=== PATIENT | female | born 1950 ===

== ENCOUNTER 2020-09-18 07:03 | Day surgery (SDC) | payer MEDICARE, OTHER ==
[~2020-09-18 07:03] MED LIST: Lactated Ringers 1,000 ML IV SCH; Lidocaine 2% 5 ML SDV ONE; Midazolam 1 MG/ML 2 ML SDV ONE; Propofol 200 MG/20 ML SDV ONE
--- NOTE | 2020-09-18 08:06 | PCM.PREANE ---
Preanesthetic Assessment - Anesthesia/Transfusion/Family Hx Anesthesia History: Prior Anesthesia Without Reaction Other Type of Anesthesia Reaction Comment: Denies any known problem with anesthesia in the past Family History of Anesthesia Reaction: No Transfusion History: No Prior Transfusion(s) - Review of Systems General: No Symptoms Pulmonary: No Symptoms Cardiovascular: No Symptoms Gastrointestinal: No Symptoms Neurological: No Symptoms Other: Reports: None - Physical Assessment NPO Status Date: 09/17/20 Vital Signs: Last Vital Signs Temp 97.2 F 09/18/20 07:28 Pulse 81 09/18/20 07:28 Resp 16 09/18/20 07:28 BP 149/74 H 09/18/20 07:28 Pulse Ox 97 09/18/20 07:28 Height: 5 ft Weight: 98.43 kg ASA Class: 3 Mental Status: Alert & Oriented x3 Airway Class: Mallampati = 2 ROM/Head Extension: Full Lungs: Clear to Auscultation, Normal Respiratory Effort Cardiovascular: Regular Rate, Regular Rhythm - Lab Values: Laboratory Last Values POC Glucose 178 mg/dL (60-110) H 09/18/20 07:24 - Allergies Allergies/Adverse Reactions: Allergies Allergy/AdvReac Type Severity Reaction Status Date / Time codeine Allergy Stomach Verified 09/18/20 07:34 Ache ibuprofen [From Motrin] Allergy Stomach Verified 09/18/20 07:34 Ache lisinopril Allergy Itching Verified 09/18/20 07:34 metal Allergy Itching Uncoded 09/18/20 07:34 - Blood Blood Available: No - Anesthesia Plan Pre-Op Medication Ordered: None - Acknowledgements Anesthesia Type Planned: General Anesthesia Pt an Appropriate Candidate for the Planned Anesthesia: Yes Alternatives and Risks of Anesthesia Discussed w Pt/Guardian: Yes Pt/Guardian Understands and Agrees with Anesthesia Plan: Yes Additional Comments: PMH: cad with stents about 10 yr ago, copd- stopped smoking 14 months ago, uses a rescue inhaler abour once every 2 weeks, dm with glucose today of 177, htn, hld, RA-pain primarily in her knees, gerd/pud PLAN: tiva PreAnesthesia Questionnaire HEENT History: Reports: Impaired Vision Other HEENT History: wears glasses Cardiovascular History: Reports: CAD Respiratory History: Reports: COPD Gastrointestinal History: Reports: Colon Polyp, GERD Genitourinary History: Reports: None Musculoskeletal History: Reports: Arthritis, Fracture Other Musculoskeletal History: states had a fractured left wrist in the past Neurological History: Reports: None Psychiatric History: Reports: None Endocrine/Metabolic History: Reports: Diabetes, Type II, Hypothyroidism Hematologic History: Reports: None Immunologic History: Reports: None Oncologic (Cancer) History: Reports: None Dermatologic History: Reports: Psoriasis - Infectious Disease History Infectious Disease History: Reports: None - Past Surgical History Head Surgeries/Procedures: Reports: None HEENT Surgical History: Reports: Tonsillectomy Cardiovascular Surgical History: Reports: Carotid Endarterectomy Other Cardiovascular Surgeries/Procedures: states had placement of two stents GI Surgical History: Reports: Cholecystectomy, Colonoscopy, Polypectomy Female Surgical History: Reports: None Neurological Surgical History: Reports: None Musculoskeletal Surgical History: Reports: None Oncologic Surgical History: Reports: None - SUBSTANCE USE Tobacco Use Status *Q: Former Tobacco User - HOME MEDS Home Medications: Home Meds Albuterol [Proventil HFA] 2 puff INH Q4H PRN 03/27/14 [History] Fluticasone/Salmeterol [Advair 250-50 Diskus] 1 puff INH BID 03/27/14 [History] Levothyroxine 150 mcg PO ACBRK 03/27/14 [History] Nitroglycerin [Nitrostat] 0.4 mg SL ASDIRECTED PRN 03/27/14 [History] Omeprazole 20 mg PO DAILY 03/27/14 [History] hydroCHLOROthiazide [Hydrochlorothiazide] 1 tab PO BRK 03/27/14 [History] Clopidogrel Bisulfate [Plavix] 1 tab PO DAILY 09/15/20 [History] Empagliflozin [Jardiance] 1 tab PO DAILY 09/15/20 [History] Folic Acid 1 tab PO DAILY 09/15/20 [History] Triamcinolone Acetonide [Triamcinolone Acetonide 0.1% Crm] 1 applic TOP ASDIRECTED 09/15/20 [History] glyBURIDE [Glyburide] 1 tab PO BID 09/15/20 [History] - CURRENT (IN HOUSE) MEDS Current Meds: Current Medications Lactated Ringer's (Ringers, Lactated) 1,000 mls @ 125 mls/hr IV ASDIRECTED RASHEED Last Admin: 09/18/20 07:29 Dose: 125 mls/hr Documented by: Discontinued Medications Lidocaine (Xylocaine-Mpf 2%) Confirm Administered Dose 5 ml .ROUTE .STK-MED ONE Stop: 09/18/20 07:01 Midazolam HCl (Versed 1 Mg/Ml) Confirm Administered Dose 2 mg .ROUTE .STK-MED ONE Stop: 09/18/20 07:00 Propofol (Diprivan 20 Ml) Confirm Administered Dose 200 mg .ROUTE .STK-MED ONE Stop: 09/18/20 07:00 Propofol (Diprivan 20 Ml) Confirm Administered Dose 200 mg .ROUTE .STK-MED ONE Stop: 09/18/20 07:03
[2020-09-18] MEDS ORDERED: Propofol 200 MG/20 ML SDV ONE (09:02)
--- NOTE | 2020-09-18 09:20 | PCM.OPNOTE ---
- General Post-Op/Procedure Note Date of Surgery/Procedure: 09/18/20 Operative Procedure(s): Colonoscopy with cold proximal, mid and distal transverse colon polypectomy, cold sigmoid polypectomy and cold rectal polypectomy. Pre Op Diagnosis: Personal history of colon polyps Post-Op Diagnosis: Transverse colon, sigmoid and rectal polyps. Anesthesia Technique: MAC (ASA III) Primary Surgeon: Naldo Quiles Condition: Good Free Text/Narrative:: DICTATION [id number] CPT CODE 28963
--- NOTE | 2020-09-18 09:23 | PCM.POSTAN ---
POST ANESTHESIA ASSESSMENT - MENTAL STATUS Mental Status: Alert, Oriented - VITAL SIGNS Vital Signs: Last Vital Signs Temp 97.2 F 09/18/20 07:28 Pulse 81 09/18/20 07:28 Resp 16 09/18/20 07:28 BP 149/74 H 09/18/20 07:28 Pulse Ox 97 09/18/20 07:28 - RESPIRATORY Respiratory Status: Respiratory Rate WNL, Airway Patent, O2 Saturation Stable - CARDIOVASCULAR CV Status: Pulse Rate WNL, Blood Pressure Stable - GASTROINTESTINAL GI Status: No Symptoms - POST OP HYDRATION Hydration Status: Adequate & Stable
--- NOTE | 2020-09-18 09:23 | PCM48HPAN ---
Post Anesthesia Note - EVALUATION WITHIN 48HRS OF ANESTHETIC Vital Signs in Normal Range: Yes Patient Participated in Evaluation: Yes Respiratory Function Stable: Yes Airway Patent: Yes Cardiovascular Function Stable: Yes Hydration Status Stable: Yes Pain Control Satisfactory: Yes Nausea and Vomiting Control Satisfactory: Yes Mental Status Recovered: Yes Vital Signs: Last Vital Signs Temp 97.2 F 09/18/20 07:28 Pulse 81 09/18/20 07:28 Resp 16 09/18/20 07:28 BP 149/74 H 09/18/20 07:28 Pulse Ox 97 09/18/20 07:28
[2020-09-18] MEDS ORDERED: Lactated Ringers 1,000 ML IV SCH (09:30)
--- NOTE | 2020-09-18 11:01 | OR ---
SURGEON: Naldo Quiles M.D. DATE OF PROCEDURE: 09/18/2020 OPERATION PERFORMED: Colonoscopy with multiple cold polypectomies from the proximal, mid, and distal transverse colon; proximal sigmoid colon; and rectum. PRIMARY SURGEON: Naldo Quiles MD ANESTHESIA: MAC. ASA CLASSIFICATION: III. PREOPERATIVE DIAGNOSIS: Personal history of colon polyps. POSTOPERATIVE DIAGNOSIS: Proximal, mid, and distal transverse colon polyps; sigmoid colon polyp; rectal polyp. DESCRIPTION OF PROCEDURE: The patient was taken to the endoscopy room and positioned on the endoscopy table in the left lateral decubitus position. Time-out was called for appropriate identification of the patient and procedure. Monitored anesthesia care was provided. The colonoscope was inserted into the rectum and advanced with minimal difficulty to the cecum. The cecum was identified by internal landmarks and external pressure. The colonoscope was retroflexed to visualize the ascending colon from below, then straightened and slowly withdrawn. The cecum and ascending colon showed no tumors, polyps, diverticula, or angiodysplastic changes. Small polyps were encountered in the proximal, mid, and distal transverse colon. Each polyp was serially removed and sent for separate histologic analysis. No diverticular changes were noted and there was no evidence of inflammatory bowel disease. No polyps were encountered in the sigmoid colon. One polyp was encountered in the proximal sigmoid colon and again removed with cold biopsy forceps. The colonoscope was further withdrawn to the rectum where another polyp again was encountered and removed and sent for histologic analysis. The colonoscope was then retroflexed to visualize the anal orifice from above. The patient did have minor hemorrhoidal changes. No acute changes were noted. The colonoscope was then straightened, the rectum aspirated, and the colonoscope removed. The patient tolerated the procedure well and was taken to recovery room in satisfactory condition. YUNIEL / NIKO /[id number]
== END 2020-09-18 10:29 | disposition home or self-care (01) ==
LOC: MW.SDS 07:03
PROVIDERS: ATTEND Surgery
DX: Z12.11 Encounter for screening for malignant neoplasm of colon (principal); D12.3 Benign neoplasm of transverse colon; D12.5 Benign neoplasm of sigmoid colon; D12.8 Benign neoplasm of rectum; K64.9 Unspecified hemorrhoids; J45.909 Unspecified asthma, uncomplicated; I25.10 Atherosclerotic heart disease of native coronary artery without angina pectoris; E11.9 Type 2 diabetes mellitus without complications; I10 Essential (primary) hypertension; E78.00 Pure hypercholesterolemia, unspecified; E03.9 Hypothyroidism, unspecified; E66.01 Morbid (severe) obesity due to excess calories; F17.210 Nicotine dependence, cigarettes, uncomplicated; M06.9 Rheumatoid arthritis, unspecified; Z88.5 Allergy status to narcotic agent; Z88.8 Allergy status to other drugs, medicaments and biological substances; Z79.899 Other long term (current) drug therapy; Z79.84 Long term (current) use of oral hypoglycemic drugs; Z79.890 Hormone replacement therapy; Z68.41 Body mass index [BMI] 40.0-44.9, adult
CPT/HCPCS: 82962; J2001; J2250; J2704; J7120